=== PATIENT | male | born 1955 | race Caucasian/White ===

== ENCOUNTER 2017-03-30 11:11 | Day surgery (SDC) | payer BC ==
[~2017-03-30] VITALS: Ht 172.7 cm; Wt 85.0 kg
[~2017-03-30 11:11] MED LIST: ASPIRIN81 M2 PO; CARVEDILOL3.125 MG PO; FLOMAX0.4 MG PO; FUROSEMIDE40 MG PO; LISINOPRIL10 MG PO; METFORMIN HCL500 M2; METFORMIN HCL500 MG PO; PERCOCET 5/31 TABLET PO; PIROXICAM20 MG PO; PRAVASTATIN SOD20 MG PO; SALINE NASAL14.1 GM TP
== END 2017-03-30 17:14 | disposition home or self-care (01) ==
LOC: CATH 11:11
PROVIDERS: Internal Medicine Cardiovascular Disease
DX: I25.10 Atherosclerotic heart disease of native coronary artery without angina pectoris (principal); I25.5 Ischemic cardiomyopathy; E11.9 Type 2 diabetes mellitus without complications; I10 Essential (primary) hypertension; E78.5 Hyperlipidemia, unspecified; J34.2 Deviated nasal septum; G47.30 Sleep apnea, unspecified; Z79.82 Long term (current) use of aspirin; Z79.84 Long term (current) use of oral hypoglycemic drugs
CPT/HCPCS: 82948; C1769; C1887; J1644; J2250; J3010